=== PATIENT | male | born 1990 | race Caucasian/White ===

== ENCOUNTER 2023-03-09 13:37 | Emergency (ER) | payer OTHER, SELFPAY ==
[2023-03-09] VITALS (46 sets, daily range): BP systolic 115–186; BP diastolic 58–96; PULSE 52–177; RESP 13–21; TEMP 36.2–36.7; O2SAT 94–99
--- NOTE | 2023-03-09 13:39 | ED.ARRPALP ---
HPI - Arrhythmia/Palpitations General Chief Complaint: Arrhythmia/Palpitations Stated Complaint: Cardiac Time Seen by Provider: 03/09/23 13:38 Source: patient and RN notes reviewed Mode of arrival: ambulatory Limitations: no limitations History of Present Illness HPI narrative: patient states that he was at home and noted that he suddenly had a twinge of chest pain. He felt slight shortness of breath . He felt like his heart was racing so he used his Apple watch to do a EKG which showed atrial fibrillation with a rapid heartbeat. He denies any nausea vomiting. He is very athletic area and uses testosterone injections as part of 0 way to continue his body building. He tried to do a cardio workout at home to see if that would bring his heart rate back under control it did not. MD complaint: rapid heart beat and heart racing Duration: constant Severity: moderate Context: occurred during rest Associated symptoms: chest pain and shortness of breath Treatments prior to arrival: other ( cardio training) Related Data Allergies Allergy/AdvReac Type Severity Reaction Status Date / Time No Known Allergies Allergy Verified 03/09/23 16:17 Review of Systems Review of Systems: All systems reviewed & are unremarkable except as noted in HPI and below PMFSH Past Medical History Medical History (Updated 03/09/23 @ 16:31 by Joe Carroll MD) No active medical problems Surgical History Surgical History (Updated 03/09/23 @ 14:02 by Joe Carroll MD) Quadriceps muscle rupture Social History Social History (Updated 03/09/23 @ 14:02 by Joe Carroll MD) Smoking status: Never smoker Exam Const: General: healthy appearing, no acute distress and alert Nutritional Appearance: well nourished Orientation/consciousness: patient oriented x3 Limitations: no limitations HENMT: Head: normal to inspection Ears: external ears normal Face/Nose/Sinus: Normal external nose present Face and sinus: normal facial exam Mouth: Yes moist mucous membranes Eyes: Conjunctivae: conjunctivae normal Pupils: Equal, round and reactive pupils present EOM: EOMs intact bilaterally Neck: Neck: normal visual inspection Chest: Chest palpation & inspection: normal inspection of the chest Resp: Effort & Inspection: normal respiratory effort Auscultation: clear to auscultation bilaterally Cardio: Rate: tachycardic Rhythm: abnormal rhythm irregularly irregular GI: GI Palp: Yes Soft to palpation and No Tenderness to palpation present (GI) Auscultation: normal bowel sounds Back/Spine/Pelvis: Cervical Spine: cervical ROM normal Thoracic/Lumbar Spine: thoraco-lumbar ROM normal Skin: General skin exam: normal color Rashes: no rashes Neuro: General: patient oriented x3, moves all extremities, no focal motor deficits and CN's II-XI intact bilaterally Speech: normal speech Gait exam (Neuro): Normal gait present Extrem: General: normal to inspection and no clubbing, cyanosis or edema Psych: Mental Status: mental status grossly normal Affect: normal affect Attitude: cooperative Course Course Emergency Course: Patient given 25 mg of Cardizem IV push. He quickly came down to pulse rate of 88. He was started on a 10 mg Cardizem drip. When his heart rate dropped down into the 60s I decreased his drip to 5 mg an hour. He is also given Eliquis 10 mg p.o.. Consultations Consultation #1: Dr. Dyer cardiology Date: 03/09/23 Time: 16:20 Vital Signs Vital signs: Vital Signs Pulse Rate 126 H 03/09/23 13:47 Respiratory Rate 16 03/09/23 13:47 Pulse Oximetry 99 03/09/23 13:47 Temperature 36.2 C L 03/09/23 13:50 Pulse Rate 58 L 03/09/23 18:06 Respiratory Rate 19 03/09/23 17:31 Blood Pressure 121/73 03/09/23 18:06 Pulse Oximetry 97 03/09/23 17:31 Oxygen Delivery Room Air 03/09/23 13:50 Transfer Transfered to: Other ( [facility]) Transportation: ALS Transfer rationale: cardiology speciali
--- NOTE | 2023-03-09 13:45 | ECG_ITS ---
Measurements Intervals [place] Rate: 137 P: AR: 0 QRS: 69 QRSD: 96 T: -16 QT: 281 QTc: 425 Interpretive Statements ATRIAL FIBRILLATION WITH RAPID VENTRICULAR RESPONSE NONSPECIFIC ST & T-WAVE ABNORMALITY- INF/LAT LEADS ABNORMAL ECG NO PREVIOUS ECG AVAILABLE FOR COMPARISON Electronically Signed On 03-09-2023 20:43:49 CDT by Rodolfo Senior D.O.
[2023-03-09] MEDS: dilTIAZem HCl INJ 25 MG/5 ML VIAL IV PUSH (14:03)
[2023-03-09] MEDS: dilTIAZem 100 MG/100 ML 100 MG/100 ML BAG 10 MG IV CONT (14:04)
[2023-03-09 14:08] LABS: Basophils Absolute Auto 0.03 K/mm3 (0.00-0.10); Basophils Percent Auto 0.4 % (0.0-1.0); Eosinophils Absolute Auto 0.21 K/mm3 (0.02-0.50); Eosinophils Percent Auto 2.5 % (1.0-6.0); Hematocrit 51.8 % (40.0-54.0); Hemoglobin 18.1 g/dL (14.0-18.0); Immature Granulocyte Absolute 0.02 K/mm3 (0.00-0.00); Immature Granulocyte Percent A 0.2 % (0.0-0.0); Lymphocytes Absolute Auto 1.39 K/mm3 (1.10-4.50); Lymphocytes Percent Auto 16.7 % (18.0-42.0); Mean Corpuscular HGB Conc 34.9 g/dL (32.0-36.0); Mean Corpuscular Hemoglobin 30.8 pg (27.0-31.0); Mean Corpuscular Volume 88.2 fL (78.0-102.0); Mean Platelet Volume 9.3 fl (8.7-11.0); Monocytes Absolute Auto 0.85 K/mm3 (0.10-0.90); Monocytes Percent Auto 10.2 % (2.0-11.0); Neutrophils Absolute Auto 5.8 K/mm3 (1.7-7.2); Platelet Count Result 194 K/mm3 (150-420); Red Blood Count 5.87 M/mm3 (4.70-6.10); Red Cell Distribution Width 11.7 % (11.6-14.4); White Blood Count 8.3 K/mm3 (4.8-10.8)
[2023-03-09 14:27] LABS: Alanine Aminotransferase 45 U/L (16-63); Albumin Level 3.6 g/dL (3.4-5.0); Alkaline Phosphatase 68 U/L (46-116); Anion Gap 7 mmol/L (8-16); Aspartate Amino Transferase 27 U/L (15-37); Bilirubin,Total 0.4 mg/dL (0.00-1.00); Blood Urea Nitrogen 24 mg/dL (7-18); Calcium 9.1 mg/dL (8.5-10.1); Carbon Dioxide 30 mmol/L (21-32); Chloride 101 mmol/L (98-108); Estimated CRCL calculation 75 ml/min; Estimated Glomerular Filt Rate 53; Glucose 201 mg/dL (70-99); Magnesium 1.8 mg/dL (1.8-2.4); Osmolality Calculated 296 mOsm/kg (285-295); Potassium 4.1 mmol/L (3.5-5.1); Sodium 138 mmol/L (136-145); Total Protein 6.9 g/dL (6.4-8.2); Troponin I 4.7 ng/L (0.00-60.4)
[2023-03-09 15:10] LABS: Thyroid Stimulating Hormone 3.08 uIU/mL (0.36-3.74)
[2023-03-09] MEDS: APIXABAN 2.5 MG TABLET 10 MG PO (16:24)
== END 2023-03-09 18:49 | disposition short-term general hospital (02) ==
PROVIDERS: Emergency Provider Emergency Medicine
DX: I48.20 Chronic atrial fibrillation, unspecified (principal)
CPT/HCPCS: 36415; 80053; 83735; 84443; 84484; 85025; 93005; 96365; 96366; 99285; A9270